=== PATIENT | female | born 1945 ===

== ENCOUNTER → 2021-02-23 19:48 | Outpatient (CLI) | payer OTHER ==
[2021-02-23 19:56] LABS: BASOPHILS 0.6 % (0-2); EOSINOPHILS 1.4 % (0-7); HEMOGLOBIN 12.9 g/dL (12-16); LYMPHOCYTES 33.5 % (15-50); MCH 30.5 pg (26.0-34.0); MCHC 32.3 g/dL (31.0-37.0); MCV 94.5 fL (80.0-100.0); MEAN PLATELET VOLUME 9.4 fL (7.4-10.4); MONOCYTES 6.3 % (2-11); NEUTROPHILS 58.2 % (40-80); PLATELET COUNT 243 10x3/uL (130-400); RBC 4.24 10x6/uL (4.00-5.40); RDW 14.1 % (11.5-14.5); WBC 6.4 10x3/uL (4.8-10.8)
[2021-02-23 20:18] LABS: ALBUMIN 4.1 g/dL (3.4-5.0); ANION GAP 12.4 mmol/L (8-16); BILIRUBIN - TOTAL 0.25 mg/dL (0.2-1.3); CARBON DIOXIDE 31.4 mmol/L (21.0-32.0); CREATININE - SERUM 1.3 mg/dL (0.6-1.3); POTASSIUM - SERUM 3.8 mmol/L (3.5-5.1); PROTEIN - SERUM 7.1 g/dL (6.4-8.2)
[2021-02-23 20:30] LABS: CALCIUM 10.5 mg/dL (8.5-10.1)
== END | disposition home or self-care (01) ==
LOC: D.LABREF 19:48
DX: R10.12 Left upper quadrant pain (principal)